=== PATIENT | male | born 1965 | race Two or more races ===

== ENCOUNTER 2024-06-30 22:40 | Inpatient (IN) | payer OTHER ==
[~2024-06-30] VITALS: Ht 170.2 cm; Wt 91.0 kg
--- NOTE | 2024-06-30 22:53 | ED.PDOC ---
SOB-HPI HPI Comments pt has a history of seasonal allergies and asthma. started to have sob with wheezes and chest pain tonight. he used his albuterol, which did not help. it became so severe that he had bowel incontinence, then called 911 Chief Complaint: Shortness of Breath Comments pt's last asthma attack like this episode was 3 yrs ago. he does not smoke. inhalers did not help. 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 Information Source: Patient, Emergency Med Personnel Mode of Arrival: EMS Severity: Severe Timing: Hours Duration: Intermittent Context: At Rest PE Risk Factors: None History of: Asthma Modifying Factors: Inhaler Associated Signs and Symptoms: Wheeze Past Medical History PAST MEDICAL HISTORY: Asthma, High Lipids, HTN Surgical History: Denies all surgeries Family History Family History: Reviewed,noncontributory to illness, No family hx of Cancer, No family hx of DM, No family hx of Heart carlotta, No family hx of HTN, No family hx ofKidney carlotta, No family hx of Liver carlotta, No family hx of Lung carlotta, No family hx of Stroke Social History Smoker: Non-Smoker Alcohol: Denies ETOH Use Drugs: Denies Drug Use Constitutional: denies: chills, diaphoresis, fatigue, fever, malaise, sweats, weakness, others EENTM: denies: blurred vision, double vision, ear bleeding, ear discharge, ear drainage, ear pain, ear ringing, eye pain, eye redness, hearing loss, mouth pain, mouth swelling, nasal discharge, nose bleeding, nose congestion, nose pain, photophobia, tearing, throat pain, throat swelling, voice changes, others Respiratory: reports: shortness of breath; denies: cough, hemoptysis, orthopnea, SOB at rest, SOB with excertion, stridor, wheezing, others Cardiovascular: reports: chest pain; denies: dizzy spells, diaphoresis, Dyspnea on exertion, edema, irregular heart beat, left arm pain, lightheadedness, palpitations, PND, syncope, others Gastrointestinal: denies: abdomen distended, abdominal pain, blood streaked bowels, constipated, diarrhea, dysphagia, difficulty swallowing, hematemesis, melena, nausea, poor appetite, poor fluid intake, rectal bleeding, rectal pain, vomiting, others Genitourinary: denies: burning, dysuria, flank pain, frequency, hematuria, incontinence, penile discharge, penile sore, pain, testicle pain, testicle swelling, urgency, others Neurological: denies: dizziness, fainting, headache, left sided numbness, left sided weakness, numbness, paresthesia, pre-existing deficit, right sided numbness, right sided weakness, seizure, speech problems, tingling, tremors, weakness, others Musculoskeletal: denies: back pain, gout, joint pain, joint swelling, muscle pain, muscle stiffness, neck pain, others Integumetry: denies: bruises, change in color, change in hair/nails, dryness, laceration, lesions, lumps, rash, wounds, others Allergic/Immunocompromised: denies: Difficulty Healing, Frequent Infections, Hives, Itching, others Hematologic/Lymphatic: denies: anemia, blood clots, easy bleeding, easy bruising, swollen glands, others Endocrine: denies: excessive hunger, excessive sweating, excessive thirst, excessive urination, flushing, intolerance to cold, intolerance to heat, unexplained weight gain, unexplained weight loss, others Psychiatric: denies: anxiety, bipolar disorder, depression, hopeless, panic disorder, schizophrenia, sleepless, suicidal, others Physical Exam General Appearance: No Apparent Distress, Normal HEENT: Normal ENT Inspection, Pharynx Normal, TMs Normal Neck: Full Range of Motion, Non-Tender, Normal, Normal Inspection Respiratory: Chest Non-Tender, Lungs Clear, No Accessory Muscle Use, No Respiratory Distress, Normal Breath Sounds Cardiovascular: No Edema, No JVD, No Murmur, No Gallop, Normal Peripheral Pulses, Regular Rate/Rhythm Breast Exam: Deferred Gastrointestinal: No Organomegaly, Non Tender, No Pulsatile Mass, Normal Bowel Sounds, Soft Genitalia: Deferred Pelvic: Deferred Rectal: Deferred Extremities: No calf tenderness, Normal capillary refill, Normal inspection, No rmal range of motion, Non-tender, No pedal edema Musculoskeletal : Apperance: Normal 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 Was a procedure done?: No Differential Dx Differential Diagnosis: Anxiety, Asthma, Bronchitis, CHF, COPD, Myocardial infarction, Panic Attack, Pneumonia, Pneumothorax, Respiratory Distress X-Ray, Labs, Meds, VS Vital Signs Date Time Temp Pulse Resp B/P (MAP) Pulse Ox O2 Delivery O2 Flow Rate FiO2 06/30/24 23:50 96 06/30/24 23:14 20 95 Room Air* 0 21 06/30/24 22:47 98.3 109 20 126/98 (107) 95 98.3 06/30/24 22:42 111 Lab Test 07/01/24 00:22 06/30/24 23:21 Range/Units Troponin I High Sensitivity Pending 57 *H </=54 ng/L White Blood Count 10.8 4.4-10.8 10^3/uL Red Blood Count 4.63 4.5-5.90 10^6/uL Hemoglobin 14.3 13.5-17.5 g/dL Hematocrit 42.0 41.0-53.0 % Mean Corpuscular Volume 90.7 80.0-100.0 fL Mean Corpuscular Hemoglobin 31.0 28.0-32.0 pg Mean Corpuscular Hemoglobin Concent 34.2 32.0-36.0 g/dL Red Cell Distribution Width 14.0 11.8-14.3 % Platelet Count 222 140-450 10^3/uL Mean Platelet Volume 7.6 6.9-10.8 fL Neutrophils (%) (Auto) 82.1 H 37.0-80.0 % Lymphocytes (%) (Auto) 8.8 L 10.0-50.0 % Monocytes (%) (Auto) 7.5 0.0-12.0 % Eosinophils (%) (Auto) 1.2 0.0-7.0 % Basophils (%) (Auto) 0.4 0.0-2.0 % Neutrophils # (Auto) 8.9 H 1.6-8.6 10 ^3/uL Lymphocytes # (Auto) 1.0 0.4-5.4 10 ^3/uL Monocytes # (Auto) 0.8 0-1.3 10 ^3/uL Eosinophils # (Auto) 0.1 0-0.8 10 ^3/uL Basophils # (Auto) 0 0-0.2 10 ^3/uL Nucleated Red Blood Cells 0.0 % Sodium Level 141 136-145 mmol/L Potassium Level 3.9 3.5-5.1 mmol/L Chloride Level 105 98-107 mmol/L Carbon Dioxide Level 29 20-31 mmol/L Anion Gap 7 5-15 Blood Urea Nitrogen 16 9-23 mg/dL Creatinine 1.03 0.700-1.30 mg/dL Glomerular Filtration Rate Calc 83 >90 mL/min BUN/Creatinine Ratio 15.5 10.0-20.0 Serum Glucose 240 H 74-106 mg/dL Calcium Level 9.4 8.7-10.4 mg/dL Current Medications Medications (Trade) Dose Ordered Sig/Chante Route Start Time Stop Time Status Last Admin Albuterol (Ventolin Medneb) 5 mg ONCE ONCE NEB 06/30/24 23:00 06/30/24 23:01 DC 06/30/24 23:14 Ipratropium [place] (Atrovent Medneb) 0.5 mg ONCE ONCE NEB 06/30/24 23:00 06/30/24 23:01 DC 06/30/24 23:14 Methylprednisolone Sodium Succinate (Solu Medrol) 125 mg ONCE ONCE IV 06/30/24 23:00 06/30/24 23:01 DC 06/30/24 23:17 Magnesium Sulfate/ Dextrose 100 ml @ 100 mls/hr ONCE ONCE IV 06/30/24 23:00 06/30/24 23:59 DC 06/30/24 23:17 Time of 1ST Reevaluation: 00:46 Reevaluation 1ST: Resolved Patient Education/Counseling: Diagnosis, Treatment, Prognosis, Need For Follow Up Family Education/Counseling: Diagnosis, Treatment, Prognosis, Need For Follow Up Additional Information pt has symptoms suggestive of angina. however, he also has asthma. this episode was more severe than his prior asthma episodes. his trop is elevated. although the epi he received by EMT may attribute to the mild troponin elevation, along with the different in symptomology, i am concerned about unstable angina. pt will be admitted for cardiac consult Departure 1 Departure Time of Disposition: 00:50 Impression: Primary Impression: Unstable angina Additional Impression: Asthma exacerbation Disposition: ADMITTED INPATIENT Admit to: Tele Condition: Serious Discharged With: Self, Spouse Critical Care Note Critical Care Time?: Yes (1 hr-critical care time only) Critical care comment: due to concerns for patient's condition deteriorating, the care required my highest level of attention and readiness to intervene. i assessed the patient's condition, ordered the proper tests and treatments, reassessed for response and reviewed the results. i communicated with medical personnel and formulated a plan of care. total critical care time does not include any procedures Stability Stability form required: No Heart Score Heart Score: Heart Score Response (Comments) Value History Moderate Suspicious 1 EKG Normal 0 Age 45-64 1 Risk Factors 1 or 2 risk factors 1 Troponin 1-2 x's Normal limit 1 Total 4 ANU GALVAN MD Jun 30, 2024 22:53
[2024-06-30 23:00] VITALS: PULSE 92; RESP 11; O2SAT 92
[2024-06-30] MEDS: IPRATROPIUM BROM 0.5 MG/2.5ML INH SOL NEB ONE (23:14)
[2024-06-30] MEDS: ALBUTEROL SULF 2.5 MG/0.5ML(0.5%) NEB SOLN NEB ONE (23:14)
[2024-06-30] MEDS: MAGNESIUM SULFATE 1GM/100ML 100 ML IV ONE (23:17)
[2024-06-30] MEDS: methylPREDNISolone SOD SUCC 125 MG/2 ML VL IV ONE (23:17)
[2024-06-30 23:37] LABS: Basophils # (auto) 0 10 ^3/uL (0-0.2); Basophils % (auto) 0.4 % (0.0-2.0); Eosinophils # (auto) 0.1 10 ^3/uL (0-0.8); Eosinophils % (auto) 1.2 % (0.0-7.0); Hemoglobin 14.3 g/dL (13.5-17.5); Lymphocytes % (auto) 8.8 % (10.0-50.0); Mean Corpuscular Hgb Conc. 34.2 g/dL (32.0-36.0); Mean Corpuscular Volume 90.7 fL (80.0-100.0); Monocytes # (auto) 0.8 10 ^3/uL (0-1.3); Monocytes % (auto) 7.5 % (0.0-12.0); Neutrophils # (auto) 8.9 10 ^3/uL (1.6-8.6); Neutrophils % (auto) 82.1 % (37.0-80.0); Platelet Count (auto) 222 10^3/uL (140-450); Red Blood Cells 4.63 10^6/uL (4.5-5.90); White Blood Cell 10.8 10^3/uL (4.4-10.8)
[2024-06-30 23:42] LABS: Chloride 105 mmol/L (98-107); Potassium 3.9 mmol/L (3.5-5.1); Sodium 141 mmol/L (136-145)
[2024-06-30 23:43] LABS: Anion Gap 7 (5-15); Carbon Dioxide 29 mmol/L (20-31)
[2024-06-30 23:44] LABS: Calcium 9.4 mg/dL (8.7-10.4)
[2024-06-30 23:48] LABS: BUN/Creatinine Ratio 15.5 (10.0-20.0); Blood Urea Nitrogen 16 mg/dL (9-23)
[2024-07-01] VITALS (7 sets, daily range): BP systolic 126–131; BP diastolic 71–98; PULSE 63–111; RESP 16–20; TEMP 98.5; O2SAT 94–97
[2024-07-01] LABS: Glucose 240 mg/dL (74-106)
--- NOTE | 2024-07-01 00:46 | DVH ---
CHEST RADIOGRAPH Indication: sob Technique: Single frontal view of the chest was obtained COMPARISON: None FINDINGS: Lines and Tubes: None Lungs: Clear Pleura: No effusion. No pneumothorax. Cardiomediastinal contours: Unremarkable IMPRESSION: No abnormality demonstrated.
[2024-07-01] MEDS: ASPirin 325 MG TAB PO ONE (00:55)
[2024-07-01 01:22] LABS: Urine Bacteria None Seen /hpf (None Seen)
[2024-07-01 01:32] LABS: Urine Blood TRACE /uL (Negative); Urine Clarity Clear (Clear); Urine Color Light-Yellow (Yellow); Urine Protein, UAD 2+ (Negative); Urine Specific Gravity 1.012 (1.001-1.035); Urine Squamous Epithelial Cell None Seen /hpf (<5); Urine Urobilinogen Normal (Negative); Urine WBC 2 /HPF (0-3)
--- NOTE | 2024-07-01 02:29 | DVHHPRES ---
History of Present Illness Resident Creating Document: SANDER ROMERO RESIDENT History of Present Illness 59-year-old male patient with past medical history of seasonal asthma ( started in childhood ) and hypertension presented with chief complaint of shortness of breath. Patient started having shortness of breath when he was taking a shower which was associated with chest pressure and wheezing at 2130 hours. Patient mentioned that he also had sweating which is a new symptom and never had during asthma exacerbation. Patient was treated for asthma exacerbation in the ER, was later stable on room air not having any active shortness of breath or wheezing, but labs revealed elevated troponins. He denied any previous history of any heart conditions, denied any nausea, vomiting, abdominal pain, diarrhea, dizziness, headache, constipation, musculoskeletal pain, or any other complaints Past medical history Seasonal asthma Hypertension Past surgical history Denied Medications Takes Singulair, Laba ICS regimen Family history Nonsignificant Social history Denied smoking, alcohol, marijuana or any other drug intake Review of Systems Review of Systems As described in the HPI Allergies: Uncoded Allergies: SEASONAL ALLERGY (Allergy, Severe, 06/30/24) Medications Current Medications Medications Dose Ordered Sig/Chante Route Start Time Stop Time Status Last Admin Dose Admin Albuterol 2.5 mg Q4HPRN PRN NEB 07/01/24 02:30 UNV Ipratropium [place] 0.5 mg Q4HPRN PRN NEB 07/01/24 02:30 UNV Prednisone 40 mg DAILY PO 07/01/24 10:00 UNV Exam Vital Signs Vital Signs Date Time Temp Pulse Resp B/P (MAP) Pulse Ox O2 Delivery O2 Flow Rate FiO2 07/01/24 00:50 111 06/30/24 23:14 20 95 Room Air* 0 21 06/30/24 22:47 98.3 126/98 (107) 98.3 Exam Examination General Appearance: Alert, Oriented X3, Cooperative, No acute distress HEENT: EOMI Respiratory: Clear to auscultation, Normal air movement Cardiovascular: Low amplitude heart sounds Regular rate, Normal S1, Normal S2 Abdominal: Normal bowel sounds Extremities: No cyanosis, No edema, Normal pulses, No tenderness/swelling Skin: No rashes, No breakdown Neuro: Normal gait, Normal speech, Strength at 5/5 X4 ext, Normal tone, Sensation intact, Cranial nerves 3-12 NL, Reflexes 2+ Psych/Mental Status: Mental status NL, Mood NL Point of care ultrasound done for lungs, no pathology at six points Labs/Xrays Labs Test 07/01/24 01:20 07/01/24 00:22 06/30/24 23:21 Range/Units Urine Color Light-yellow Yellow Urine Clarity Clear Clear Urine pH 6.0 5.0-9.0 Urine Specific Ong 1.012 1.001-1.035 Urine Protein 2+ H Negative Urine Ketones Negative Negative Urine Blood Trace H Negative /uL Urine Nitrite Negative Negative Urine Bilirubin Negative Negative Urine Urobilinogen Normal Negative mg/dL Urine Leukocyte Esterase Negative Negative /uL Urine RBC 1 0 - 3 /hpf Urine Microscopic WBC 2 0-3 /HPF Urine Squamous Epithelial Cells None seen <5 /hpf Urine Bacteria None seen None Seen /hpf Urine Glucose 4+ H Normal mg/dL Troponin I High Sensitivity 90 *H </=54 ng/L White Blood Count 10.8 4.4-10.8 10^3/uL Red Blood Count 4.63 4.5-5.90 10^6/uL Hemoglobin 14.3 13.5-17.5 g/dL Hematocrit 42.0 41.0-53.0 % Mean Corpuscular Volume 90.7 80.0-100.0 fL Mean Corpuscular Hemoglobin 31.0 28.0-32.0 pg Mean Corpuscular Hemoglobin Concent 34.2 32.0-36.0 g/dL Red Cell Distribution Width 14.0 11.8-14.3 % Platelet Count 222 140-450 10^3/uL Mean Platelet Volume 7.6 6.9-10.8 fL Neutrophils (%) (Auto) 82.1 H 37.0-80.0 % Lymphocytes (%) (Auto) 8.8 L 10.0-50.0 % Monocytes (%) (Auto) 7.5 0.0-12.0 % Eosinophils (%) (Auto) 1.2 0.0-7.0 % Basophils (%) (Auto) 0.4 0.0-2.0 % Neutrophils # (Auto) 8.9 H 1.6-8.6 10 ^3/uL Lymphocytes # (Auto) 1.0 0.4-5.4 10 ^3/uL Monocytes # (Auto) 0.8 0-1.3 10 ^3/uL Eosinophils # (Auto) 0.1 0-0.8 10 ^3/uL Basophils # (Auto) 0 0-0.2 10 ^3/uL Nucleated Red Blood Cells 0.0 % Sodium Level 141 136-145 mmol/L Potassium Level 3.9 3.5-5.1 mmol/L Chloride Level 105 98-107 mmol/L Carbon Dioxide Level 29 20-31 mmol/L Anion Gap 7 5-15 Blood Urea Nitrogen 16 9-23 mg/dL Creatinine 1.03 0.700-1.30 mg/dL Glomerular Filtration Rate Calc 83 >90 mL/min BUN/Creatinine Ratio 15.5 10.0-20.0 Serum Glucose 240 H 74-106 mg/dL Calcium Level 9.4 8.7-10.4 mg/dL Assessment/Plan Assessment/Plan Assessment/Plan #asthma exacerbation -received DUONEB, IV methylprednisone -duonebs PRN -prednisone 40mg daily -CXR #elevated trops, likely NSTEMI type 2 due to asthma exacerbation -trend trops, likely NSTEMI type 2 -EKG -echo #Hyperglycemia likely due to steroids Ordered a hemoglobin A1c Case discussion with dr Warren Plan discussed with: Patient, Spouse, Other My Orders Orders - SANDER ROMERO RESIDENT Procedure Category Date Status Time Admit ADMIT 07/01/24 Transmitted 02:24 Troponin-I Hs LAB 07/01/24 Logged 02:24 Drug Screen LAB 07/01/24 In Process 02:24 Oxygen By Nasal RT 07/01/24 Transmitted Cannula 02:24 Stat Ekg For Chest [facility] 07/01/24 In Process Pain 02:24 Notify Of Changes [facility] 07/01/24 In Process From Base 02:24 Shell 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 Operator For [facility] 07/01/24 In Process 24 Hours 02:24 Emergency Dysrhythmia [facility] 07/01/24 In Process Protocol 02:24 Rhythm Strips Once [facility] 07/01/24 In Process Every Shift 02:24 Troponin-I Hs LAB 07/01/24 Logged 03:24 Troponin-I Hs LAB 07/01/24 Logged 05:24 Echo 2d Mode Cardiac US 07/01/24 Logged DOP 02:24 Electrocardigram EKG 07/01/24 Logged 02:24 Electrocardigram EKG 07/01/24 Logged 03:24 Electrocardigram EKG 07/01/24 Logged 05:24 Albuterol Medneb PHA 07/01/24 Logged (Ventolin Medneb) 02:30 Ipratropium Medneb PHA 07/01/24 Logged (Atrovent Medneb) 02:30 Prednisone Tablet PHA 07/01/24 Logged 10:00 B-Type Natriuretic LAB 07/01/24 Transmitted Peptide 02:28 Rapid Influenza A&B LAB 07/01/24 Verified 02:28 Covid19 Antigen [facility] LAB 07/01/24 Verified Date of Service: Jul 01, 2024 Billing Provider: ZORAN WARREN MD Common Visit Codes: 81138-DETUEXU INP/OBS CARE (HIGH) SANDER ROMERO RESIDENT Jul 01, 2024 02:29 ZORAN WARREN MD Jul 01, 2024 18:27
[2024-07-01] MEDS ORDERED: IPRATROPIUM BROM 0.5 MG/2.5ML INH SOL NEB PRN (02:30)
[2024-07-01] MEDS ORDERED: ALBUTEROL SULF 2.5 MG/0.5ML(0.5%) NEB SOLN NEB PRN (02:30)
[2024-07-01 03:21] LABS: Amphetamine Screen, Urine Neg (NEGATIVE); Barbiturate Scree,Urine Neg (NEGATIVE); Benzodiazephine Screen, Urine Neg (NEGATIVE); Cannabinoid Screen, Urine Neg (NEGATIVE); Cocaine Screen, Urine Neg (NEGATIVE); Opiate Scree,Urine Neg (NEGATIVE); Phencyclidine Screen, Urine Neg (NEGATIVE)
--- NOTE | 2024-07-01 06:50 | ECG ---
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
--- NOTE | 2024-07-01 06:51 | ECG ---
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
[2024-07-01 08:36] LABS: COVID19 ANTIGEN SOFIA FIA NEGATIVE (NEGATIVE); Rapid Influenza A Negative (Negative); Rapid Influenza B Negative (Negative)
[2024-07-01 09:05] LABS: Alanine Aminotransferase 37 U/L (7-40); Albumin 4.5 g/dL (3.2-4.8); Alkaline Phosphatase 52 U/L (46-116); Anion Gap 12 (5-15); Aspartate Aminotransferase 32 U/L (13-40); BUN/Creatinine Ratio 17.2 (10.0-20.0); Blood Urea Nitrogen 17 mg/dL (9-23); Calcium 9.7 mg/dL (8.7-10.4); Carbon Dioxide 21 mmol/L (20-31); Magnesium 2.1 mg/dL (1.6-2.6); Potassium 4.4 mmol/L (3.5-5.1); Sodium 142 mmol/L (136-145); Total Protein 7.3 g/dL (5.7-8.2)
[2024-07-01 09:06] LABS: Bilirubin, Total 0.4 mg/dL (0.2-1.0)
[2024-07-01 09:07] LABS: Chloride 109 mmol/L (98-107); Glucose 245 mg/dL (74-106)
[2024-07-01 09:19] LABS: Basophils # (auto) 0 10 ^3/uL (0-0.2); Basophils % (auto) 0.1 % (0.0-2.0); Eosinophils # (auto) 0 10 ^3/uL (0-0.8); Hematocrit 42.8 % (41.0-53.0); Hemoglobin 14.7 g/dL (13.5-17.5); Lymphocytes # (auto) 0.5 10 ^3/uL (0.4-5.4); Lymphocytes % (auto) 5.7 % (10.0-50.0); Mean Corpuscular Hemoglobin 31.2 pg (28.0-32.0); Mean Corpuscular Hgb Conc. 34.4 g/dL (32.0-36.0); Mean Corpuscular Volume 90.7 fL (80.0-100.0); Monocytes # (auto) 0.1 10 ^3/uL (0-1.3); Monocytes % (auto) 1.5 % (0.0-12.0); Neutrophils # (auto) 7.6 10 ^3/uL (1.6-8.6); Neutrophils % (auto) 92.7 % (37.0-80.0); Platelet Count (auto) 240 10^3/uL (140-450); Red Blood Cells 4.72 10^6/uL (4.5-5.90); Red Cell Distribution Width 13.9 % (11.8-14.3); White Blood Cell 8.2 10^3/uL (4.4-10.8)
[2024-07-01] MEDS: ATORVASTATIN 20 MG TAB PO ONE (10:24)
[2024-07-01] MEDS: MONTELUKAST SODIUM 10 MG TAB PO ONE (10:24)
[2024-07-01] MEDS: predniSONE 20 MG TAB PO SCH (10:24)
[2024-07-01] MEDS: LOSARTAN POTASSIUM 25 MG TAB PO ONE (10:33)
--- NOTE | 2024-07-01 13:10 | DVHSR ---
APPROVED REPORT EXAM: Two-dimensional and M-mode echocardiogram with Doppler and color Doppler. Blood Pressure: 130/52 mmHg INDICATION Elevated Trops RISK FACTORS Height: 67, Weight: 200 DIMENSIONS LVDd4.9 (3.8-5.7cm)LA (2D)4.4 (1.9-4.0cm)Aortic Root3.7 (2.0-3.7cm) LVDs3.3 (2.5-4.0cm)LA (MM) (1.9-4.0cm)Aortic Cusp Exc2.1 (1.5-2.0cm) EF (%) 60.0 (55-70%)Rt. Atrium5.1 (1.9-4.0cm)Asc. Aorta cm IVSd1.1 (0.7-1.1cm)RV (D) (1.8-2.4cm) PWd1.2 (0.7-1.1cm) Mitral Valve MitralMitral Stenosis E wave0.83m/sMV Mean GR.mmHg A wave0.84m/sMV Peak GR.mmHg E/A ratio1.02D MVAcm2 DECEL [id number] 1/2 [id number] IVRTmsDop MVA2.77cm2 Aortic Valve Aortic ValveAortic Stenosis V11.57m/Fernanda Mean GR.7mmHg V21.81m/Fernanda Peak GR.13mmHg LVOT Diameter2.1 (1.8-2.4cm)Doppler AVA3.00cm2 Pulmonic Valve V21.33m/s Tricuspid Valve TR Velocity2.60m/s [id number] Other Information Technically limited study due to body habitus. Conclusion lvef 60% by visual estimaate normal rv function mild left atrium enlargement no severe valve abnomralities noted
[2024-07-01] MEDS: IPRATROPIUM BROM 0.5 MG/2.5ML INH SOL NEB SCH (13:15)
[2024-07-01] MEDS: LEVALBUTEROL HCL 1.25 MG/3 ML NEB NEB SCH (13:16)
[2024-07-01 14:48] LABS: Triglycerides 64 mg/dL (< 150)
[2024-07-01 14:49] LABS: LDL Cholesterol 119 mg/dL (< 100)
[2024-07-01 14:50] LABS: Cholesterol 167 mg/dL (< 200); HDL Cholesterol 50 mg/dL (40-59)
--- NOTE | 2024-07-01 15:21 | DVHINCON2 ---
Date Seen: Jul 01, 2024 Referring Physician MD Flora Reason for Consultation NSTEMI History of Present Illness This is a 59-year-old man who presented to the emergency room via EMS with a chief complaint of SOB. The patient describes his SOB associated with the wheezing as an asthma attack as he has had in the past for which he self administered a breathing treatment without relief of symptoms which prompted him to call 911. EN route to the hospital he was administered epinephrine IM, albuterol therapy, and underwent an Accu-Chek with some relief of symptoms. At time of assessment, the patient denied any further symptoms including SOB, chest pain, palpitations, diaphoresis, dizziness, or syncopal events. He underwent multiple 12 lead electrocardiograms x3 revealing a normal sinus rhythm without evidence of ischemia. Troponin levels peaked at 116 ng/L prompting cardiology evaluation. Significant medical history includes hypertension, dyslipidemia, and asthma. Past Medical History Past medical history reviewed. No other significant than mentioned above. Past Surgical History Denies any past surgical history. Family History Family history reviewed. Social History Denies the use of illicit drugs, alcohol, or tobacco use. Allergies: Uncoded Allergies: SEASONAL ALLERGY (Allergy, Severe, 06/30/24) Home Meds Home medications reviewed. Current Medications Current Medications Medications (Trade) Dose Ordered Sig/Chante Route PRN Reason Start Time Stop Time Status Last Admin Albuterol (Ventolin Medneb) 2.5 mg Q4HPRN PRN NEB SHORTNESS OF BREATH 07/01/24 02:30 07/01/24 08:40 DC Ipratropium [place] (Atrovent Medneb) 0.5 mg Q4HPRN PRN NEB SHORTNESS OF BREATH 07/01/24 02:30 07/01/24 08:40 DC Prednisone 40 mg DAILY PO 07/01/24 10:00 07/01/24 10:24 Atorvastatin Calcium (Lipitor) 40 mg HS PO 07/02/24 22:00 Losartan Potassium (Cozaar Tablet) 25 mg DAILY PO 07/02/24 10:00 Montelukast Sodium (Singulair Tablet) 10 mg HS PO 07/02/24 22:00 Levalbuterol HCl (Xopenex Medneb) 1.25 mg Q6HR NEB 07/01/24 12:00 07/01/24 13:16 Ipratropium [place] (Atrovent Medneb) 0.5 mg Q6HR NEB 07/01/24 12:00 07/01/24 13:15 Aspirin 81 mg DAILY PO 07/02/24 10:00 Review of Systems Constitutional: No symptom reported Ears, Nose, & Throat: No symptom reported Eyes: No symptom reported Neurological: No symptoms reported Pulmonary/Respiratory: SOB Cardiovascular: No symptom reported Gastrointestinal: No symptom reported Genitourinary: No symptom reported Musculoskeletal: No symptom reported Skin: No symptom reported Psychiatric: No symptom reported Endocrine: No symptom reported Hemotologic/Lymphatic: No symptom reported Vital Signs Vital Signs Date Time Temp Pulse Resp B/P (MAP) Pulse Ox O2 Delivery O2 Flow Rate FiO2 07/01/24 14:00 98.5 83 16 127/62 (83) 92 98.5 07/01/24 13:16 Room Air 0.0 07/01/24 13:16 21 Physical Exam General Appearance: Cooperative. Well developed. Well nourished. In no acute distress Head Exam: Normal inspection Neck Exam: Normal inspection. Non-tender. Normal alignment Pulmonary/Respiratory: Chest non-tender. Clear bilateral breath sounds Cardiovascular/Chest: Regular rate and rhythm. S1, S2. NSR. No murmurs. No JVD. Peripheral Pulses: 2+ Radial (R). 2+ Radial (L). 2+ Pedal (R). 2+ Pedal (L) Abdominal Exam: Normal bowel sounds. Soft. Nontender. No hepatospenomegaly. No masses Ankle Exam: Negative ankle edema Lower extremities: Negative lower extremity edema Neuro/Mental Status: A&O x4. Coherent Thoughts/Psych: Normal thought pattern. Appropriate mood and affect. Good judgement and insight Appearance: In no acute distress Skin Exam: Normal inspection. Normal color. Warm. Dry Labs/Diagnostic Data Labs Test 07/01/24 09:00 07/01/24 07:35 07/01/24 07:28 07/01/24 01:20 Range/Units White Blood Count 8.2 4.4-10.8 10^3/uL Red Blood Count 4.72 4.5-5.90 10^6/uL Hemoglobin 14.7 13.5-17.5 g/dL Hematocrit 42.8 41.0-53.0 % Mean Corpuscular Volume 90.7 80.0-100.0 fL Mean Corpuscular Hemoglobin 31.2 28.0-32.0 pg Mean Corpuscular Hemoglobin Concent 34.4 32.0-36.0 g/dL Red Cell Distribution Width 13.9 11.8-14.3 % Platelet Count 240 140-450 10^3/uL Mean Platelet Volume 7.6 6.9-10.8 fL Neutrophils (%) (Auto) 92.7 H 37.0-80.0 % Lymphocytes (%) (Auto) 5.7 L 10.0-50.0 % Monocytes (%) (Auto) 1.5 0.0-12.0 % Eosinophils (%) (Auto) 0.0 0.0-7.0 % Basophils (%) (Auto) 0.1 0.0-2.0 % Neutrophils # (Auto) 7.6 1.6-8.6 10 ^3/uL Lymphocytes # (Auto) 0.5 0.4-5.4 10 ^3/uL Monocytes # (Auto) 0.1 0-1.3 10 ^3/uL Eosinophils # (Auto) 0 0-0.8 10 ^3/uL Basophils # (Auto) 0 0-0.2 10 ^3/uL Nucleated Red Blood Cells 0.0 % Hemoglobin A1c 5.6 <5.7 % A1C Influenza Type A Antigen Negative Negative Influenza Type B Antigen Negative Negative SARS-CoV-2 Antigen (Rapid) Negative NEGATIVE Sodium Level 142 136-145 mmol/L Potassium Level 4.4 3.5-5.1 mmol/L Chloride Level 109 H 98-107 mmol/L Carbon Dioxide Level 21 20-31 mmol/L Anion Gap 12 5-15 Blood Urea Nitrogen 17 9-23 mg/dL Creatinine 0.99 0.700-1.30 mg/dL Glomerular Filtration Rate Calc 87 >90 mL/min BUN/Creatinine Ratio 17.2 10.0-20.0 Serum Glucose 245 H 74-106 mg/dL Calcium Level 9.7 8.7-10.4 mg/dL Magnesium Level 2.1 1.6-2.6 mg/dL Total Bilirubin 0.4 0.2-1.0 mg/dL Aspartate Amino Transferase (AST) 32 13-40 U/L Alanine Aminotransferase (ALT) 37 7-40 U/L Alkaline Phosphatase 52 46-116 U/L Troponin I High Sensitivity 91 *H </=54 ng/L Total Protein 7.3 5.7-8.2 g/dL Albumin 4.5 3.2-4.8 g/dL Triglycerides Level 64 < 150 mg/dL Cholesterol Level 167 < 200 mg/dL LDL Cholesterol 119 H < 100 mg/dL HDL Cholesterol 50 40-59 mg/dL Thyroid Stimulating Hormone (TSH) 0.24 L 0.55-4.78 uIU/mL Urine Color Light-yellow Yellow Urine Clarity Clear Clear Urine pH 6.0 5.0-9.0 Urine Specific [place] 1.012 1.001-1.035 Urine Protein 2+ H Negative Urine Ketones Negative Negative Urine Blood Trace H Negative /uL Urine Nitrite Negative Negative Urine Bilirubin Negative Negative Urine Urobilinogen Normal Negative mg/dL Urine Leukocyte Esterase Negative Negative /uL Urine RBC 1 0 - 3 /hpf Urine Microscopic WBC 2 0-3 /HPF Urine Squamous Epithelial Cells None seen <5 /hpf Urine Bacteria None seen None Seen /hpf Urine Glucose 4+ H Normal mg/dL Urine Opiates Screen Neg NEGATIVE Urine Fentanyl Screen Neg NEGATIVE Urine Barbiturates Screen Neg NEGATIVE Urine Phencyclidine Screen Neg NEGATIVE Urine Amphetamines Screen Neg NEGATIVE Urine Benzodiazepines Screen Neg NEGATIVE Urine Cocaine Screen Neg NEGATIVE Urine Cannabinoids Screen Neg NEGATIVE Test 06/30/24 23:21 Range/Units B-Type Natriuretic Peptide 1.55 0-100 pg/mL Assessment Asthma exacerbation NSTEMI likely type 2 secondary to above Hypertension Dyslipidemia Obesity Plan/Recommendation (Dr. Humphries) Likely NSTEMI type 2 secondary to asthma exacerbation. Transthoracic echocardiogram revealed LVEF 60% with normal RV function. Doubt ACS given multiple normal 12 lead electrocardiograms and unremarkable echocardiogram. There is no further cardiac workup indicated at this time. Kindly call if in need to re-consult. Thank you for allowing us to participate in this patient's care. Please call if you have any questions or concerns. This medical document was created using an electronic medical record system with voice recognition software and computerized dictation system. Although this document has been carefully reviewed, there might still be some phonetic and typographical errors. Occasional wrong-word or ``sound-alike substitutions may have occurred due to the inherent limitations of voice recognition software. These areas are purely typographical due to imperfections of the software programs and do not reflect any compromise in the patient's medical care. Please read the chart carefully and recognize, using context, where these substitutions have occurred. Plan discussed with: Patient, Other NYHA Physical activity limitations: NA Date of Service: Jul 01, 2024 Billing Provider: TRICIA BALBUENA Cardiology Common Codes: [id number] INP/OBS CARE (High) TRICIA BALBUENA Jul 01, 2024 15:21
[2024-07-01] MEDS: ASPirin 81 mg TAB PO ONE (15:26)
--- NOTE | 2024-07-01 15:56 | DVHDSRES ---
Discharge Summary Date of Admission Resident Creating Document: SANDER ROMERO Jul 01, 2024 at 02:24 Date of Discharge: Jul 01, 2024 Labs/Diagnostic Data: Laboratory Results Test 07/01/24 09:00 07/01/24 07:35 07/01/24 07:28 07/01/24 01:20 White Blood Count 8.2 10^3/uL (4.4-10.8) Red Blood Count 4.72 10^6/uL (4.5-5.90) Hemoglobin 14.7 g/dL (13.5-17.5) Hematocrit 42.8 % (41.0-53.0) Mean Corpuscular Volume 90.7 fL (80.0-100.0) Mean Corpuscular Hemoglobin 31.2 pg (28.0-32.0) Mean Corpuscular Hemoglobin Concent 34.4 g/dL (32.0-36.0) Red Cell Distribution Width 13.9 % (11.8-14.3) Platelet Count 240 10^3/uL (140-450) Mean Platelet Volume 7.6 fL (6.9-10.8) Neutrophils (%) (Auto) 92.7 % (37.0-80.0) Lymphocytes (%) (Auto) 5.7 % (10.0-50.0) Monocytes (%) (Auto) 1.5 % (0.0-12.0) Eosinophils (%) (Auto) 0.0 % (0.0-7.0) Basophils (%) (Auto) 0.1 % (0.0-2.0) Neutrophils # (Auto) 7.6 10 ^3/uL (1.6-8.6) Lymphocytes # (Auto) 0.5 10 ^3/uL (0.4-5.4) Monocytes # (Auto) 0.1 10 ^3/uL (0-1.3) Eosinophils # (Auto) 0 10 ^3/uL (0-0.8) Basophils # (Auto) 0 10 ^3/uL (0-0.2) Nucleated Red Blood Cells 0.0 % Hemoglobin A1c 5.6 % A1C (<5.7) Influenza Type A Antigen Negative (Negative) Influenza Type B Antigen Negative (Negative) SARS-CoV-2 Antigen (Rapid) Negative (NEGATIVE) Sodium Level 142 mmol/L (136-145) Potassium Level 4.4 mmol/L (3.5-5.1) Chloride Level 109 mmol/L (98-107) Carbon Dioxide Level 21 mmol/L (20-31) Anion Gap 12 (5-15) Blood Urea Nitrogen 17 mg/dL (9-23) Creatinine 0.99 mg/dL (0.700-1.30) Glomerular Filtration Rate Calc 87 mL/min (>90) BUN/Creatinine Ratio 17.2 (10.0-20.0) Serum Glucose 245 mg/dL (74-106) Calcium Level 9.7 mg/dL (8.7-10.4) Magnesium Level 2.1 mg/dL (1.6-2.6) Total Bilirubin 0.4 mg/dL (0.2-1.0) Aspartate Amino Transferase (AST) 32 U/L (13-40) Alanine Aminotransferase (ALT) 37 U/L (7-40) Alkaline Phosphatase 52 U/L (46-116) Troponin I High Sensitivity 91 ng/L (</=54) Total Protein 7.3 g/dL (5.7-8.2) Albumin 4.5 g/dL (3.2-4.8) Triglycerides Level 64 mg/dL (< 150) Cholesterol Level 167 mg/dL (< 200) LDL Cholesterol 119 mg/dL (< 100) HDL Cholesterol 50 mg/dL (40-59) Thyroid Stimulating Hormone (TSH) 0.24 uIU/mL (0.55-4.78) Urine Color Light-yellow (Yellow) Urine Clarity Clear (Clear) Urine pH 6.0 (5.0-9.0) Urine Specific [place] 1.012 (1.001-1.035) Urine Protein 2+ (Negative) Urine Ketones Negative (Negative) Urine Blood Trace /uL (Negative) Urine Nitrite Negative (Negative) Urine Bilirubin Negative (Negative) Urine Urobilinogen Normal mg/dL (Negative) Urine Leukocyte Esterase Negative /uL (Negative) Urine RBC 1 /hpf (0 - 3) Urine Microscopic WBC 2 /HPF (0-3) Urine Squamous Epithelial Cells None seen /hpf (<5) Urine Bacteria None seen /hpf (None Seen) Urine Glucose 4+ mg/dL (Normal) Urine Opiates Screen Neg (NEGATIVE) Urine Fentanyl Screen Neg (NEGATIVE) Urine Barbiturates Screen Neg (NEGATIVE) Urine Phencyclidine Screen Neg (NEGATIVE) Urine Amphetamines Screen Neg (NEGATIVE) Urine Benzodiazepines Screen Neg (NEGATIVE) Urine Cocaine Screen Neg (NEGATIVE) Urine Cannabinoids Screen Neg (NEGATIVE) Test 06/30/24 23:21 B-Type Natriuretic Peptide 1.55 pg/mL (0-100) Other Laboratory Tests 07/01/24 09:00 07/01/24 07:28 Brief Hx & Hospital Course: This is a 59-year-old man who presented to the emergency room via EMS with a chief complaint of SOB. The patient describes his SOB associated with the wheezing as an asthma attack as he has had in the past for which he self administered a breathing treatment without relief of symptoms which prompted him to call 911. EN route to the hospital he was administered epinephrine IM, albuterol therapy, and underwent an Accu-Chek with some relief of symptoms. Patient denies fever, chest pain, nausea, abdominal pain, or any recent sick contact. PMHx: Hypertension, dyslipidemia and asthma PSHx: Not significant Family history: Not contributory Social history: Lives at home with family, ex-smoker, denies any current drug use Home medication: Lisinopril, atorvastatin and nebulizer Allergic history: Seasonal allergic Hospital course: Patient was admitted for asthma exacerbation, given IV steroid, nebulized and continued home medicine. Trop I was showing mild raised, echo was within normal limits, cardiology recommended no further workup. Patient was discharged with prednisone 40 mg daily for 4 more days and recommended to follow up with PCP at office. Operations or Procedures [place] [id number] Ph: [phone] DIAGNOSTIC IMAGING Diagnostic Imaging Report : [id number] Signed PATIENT: MAYO REDD ACCT: [id number] UNIT: [id number] : 1965 LOC: OVERFLOW ROOM / BED: [address] [place] [address] AGE / SEX: 59 / M ADM STATUS: ADM IN SERVICE 3 ORDERING PHYSICIAN: SANDER ROMERO RESIDENT PROCEDURE(s): ECIDC - ECHO 2D MODE CARDIAC DOP REASON: elevated trops ORDER NUMBER(s): [id number], ACCESSION NUMBER(s): [id number] APPROVED REPORT EXAM: Two-dimensional and M-mode echocardiogram with Doppler and color Doppler. Blood Pressure: 130/52 mmHg INDICATION Elevated Trops RISK FACTORS Height: 67, Weight: 200 DIMENSIONS LVDd 4.9 (3.8-5.7cm) LA (2D) 4.4 (1.9-4.0cm) Aortic Root 3.7 (2.0- 3.7cm) LVDs 3.3 (2.5-4.0cm) LA (MM) (1.9-4.0cm) Aortic Cusp Exc 2.1 (1.5- 2.0cm) EF (%) 60.0 (55-70%) Rt. Atrium 5.1 (1.9-4.0cm) Asc. Aorta cm IVSd 1.1 (0.7-1.1cm) RV (D) (1.8-2.4cm) PWd 1.2 (0.7-1.1cm) Mitral Valve Mitral Mitral Stenosis E wave 0.83m/s MV Mean GR. mmHg A wave 0.84m/s MV Peak GR. mmHg E/A ratio 1.0 2D MVA cm2 DECEL Time 250ms PRESS 1/2 Time 79ms IVRT ms Dop MVA 2.77cm2 Aortic Valve Aortic Valve Aortic Stenosis V1 1.57m/s AO Mean GR. 7mmHg V2 1.81m/s AO Peak GR. 13mmHg LVOT Diameter 2.1 (1.8-2.4cm) Doppler JOSHUA 3.00cm2 Pulmonic Valve V2 1.33m/s Tricuspid Valve TR Velocity 2.60m/s RVSP 36mmHg Other Information Technically limited study due to body habitus. Conclusion lvef 60% by visual estimaate normal rv function mild left atrium enlargement no severe valve abnomralities noted SIGNED BY: SHAHEEN PATTERSON MD SIGNED DATE/TIME: 07/01/24 1310 CC: Condition at Discharge: Stable Final Diagnosis/Problems List Asthma exacerbation NSTEMI, likely due to above History of hypertension Dyslipidemia Obesity, grade Hyperglycemia, likely due to steroids Discharge Disposition: Home Discharge Statement: "Patient was advised to return to the ER or call 911 if any headaches, dizziness, shortness of breath, chest pain, abdominal pain, bleeding, fevers, or worsening of medical condition. Patient was counseled about treatment plan, medications, possible side effects, patientverbalized understanding. All questions were answered to the best of my ability. This discharge took greater then 30 minutes in planning, reviewing documentation, counseling the patient, and discussing with other team members." ASSESSMENT ASSESSMENT Assessment JONAH LEE [facility] Jul 01, 2024 15:55
[2024-07-01] MEDS ORDERED: PRE1T PO (15:57)
[2024-07-01] MEDS ORDERED: PRED20TA2 PO ×2 (16:00→16:01)
[2024-07-02] MEDS ORDERED: ASPirin 81 mg TAB PO SCH (10:00)
[2024-07-02] MEDS ORDERED: LOSARTAN POTASSIUM 25 MG TAB PO SCH (10:00)
[2024-07-02] MEDS ORDERED: MONTELUKAST SODIUM 10 MG TAB PO SCH (22:00)
[2024-07-02] MEDS ORDERED: ATORVASTATIN 20 MG TAB PO SCH (22:00)
== END 2024-07-01 16:24 | disposition home or self-care (01) | DRG 202 ==
LOC: EDBD 22:40 → ER 22:40 → OVERFLOW 07-01 02:24
PROVIDERS: ADMIT Student in an Organized Health Care Education/Training Program; ATTEND Student in an Organized Health Care Education/Training Program
DX: J45.901 Unspecified asthma with (acute) exacerbation (principal); I21.4 Non-ST elevation (NSTEMI) myocardial infarction; I20.0 Unstable angina; Z20.822 Contact with and (suspected) exposure to COVID-19; R73.9 Hyperglycemia, unspecified; E78.5 Hyperlipidemia, unspecified; I10 Essential (primary) hypertension; E66.9 Obesity, unspecified; Z79.899 Other long term (current) drug therapy; Z68.31 Body mass index [BMI] 31.0-31.9, adult; Z91.09 Other allergy status, other than to drugs and biological substances
CPT/HCPCS: 36415; 80048; 80053; 80061; 80307; 81001; 83036; 83735; 83880; 84443; 84484; 85025; 87426; 87804; 93005; 93306; 94640; 96365; 96375; 99291; G0378